=== PATIENT | male | born 1955 | race Caucasian/White ===

== ENCOUNTER → 2016-06-08 | Outpatient (CLI) | payer BC, OTHER | LOC: M SLEEP 19:45 | PROVIDERS: ATTEND Nurse Practitioner Adult Health | DX: G47.30 Sleep apnea, unspecified (principal) ==

== ENCOUNTER → 2016-07-15 | Outpatient (CLI) | payer OTHER ==
--- NOTE | 2016-07-17 08:56 | SLEEPCENT ---
DATE OF PROCEDURE: 07/15/2016 ORDERED BY: ROMIE Montes De Oca Nocturnal polysomnography was performed for the titration of pressure therapy in this patient with obstructive sleep apnea syndrome, apnea hypopnea index of 25. For testing, the patient was fit a [employer]Med Quattro full face mask of medium size. 4 cm of water pressure were applied to the circuit and the lights were extinguished. 6 hours and 41 minutes of data were reviewed. There were 362 minutes of sleep identified. Sleep latency was mildly prolonged at 17 minutes. Rapid eye movement (REM) latency was more so prolonged at 280 minutes. Sleep architecture improved late in the study with optimal pressure therapy. Overall sleep efficiency was 91%. The patient's electrocardiogram (EKG) showed a sinus rhythm with an average heart rate of 58 beats per minute. Electroencephalogram (EEG) showed normal waveforms for awake and sleep. Respiratory events were found best palliated with CPAP at pressure of +13. CPAP tolerance was good. Some limb activity was appreciated. However, arousals from limb events occurred only five times per hour. IMPRESSION: Obstructive sleep apnea syndrome (G47.33). RECOMMENDATION: Nightly use of pressure therapy 13 cm of water.
== END ==
LOC: M SLEEP 07-15 20:00
PROVIDERS: ATTEND Nurse Practitioner Adult Health
DX: G47.33 Obstructive sleep apnea (adult) (pediatric) (principal)

== ENCOUNTER → 2016-09-23 | Outpatient (REF) | payer OTHER | LOC: M SFHCCLAY 09:35 | PROVIDERS: ATTEND Family Medicine | DX: E11.9 Type 2 diabetes mellitus without complications (principal); E78.2 Mixed hyperlipidemia; Z53.9 Procedure and treatment not carried out, unspecified reason ==

== ENCOUNTER → 2022-05-17 | Outpatient (REF) | payer BC ==
[2022-05-17 12:59] LABS: ALBUMIN 3.8 G/DL (3.2-5.2); ALKALINE PHOSPHATASE 101 U/L (46-116); ALT/SGPT 48 U/L (7.0-40); AST/SGOT 21 U/L (<34); BILIRUBIN,TOTAL 0.6 MG/DL (0.3-1.2); BLOOD UREA NITROGEN 17 MG/DL (9-23); CALCIUM LEVEL 9.4 MG/DL (8.3-10.6); CARBON DIOXIDE LEVEL 27 MMOL/L (20-31); CHLORIDE LEVEL 101 MMOL/L (98-107); CHOLESTEROL LEVEL 181 MG/DL (<200); CHOLESTEROL RISK RATIO 5.09 (<5); GLOMERULAR FILTRATION RATE > 60.0 (>49); GLUCOSE, FASTING 327 MG/DL (74-106); HDL CHOLESTEROL 35.5 MG/DL (>40); NON-HDL-C 146 MG/DL; POTASSIUM SERUM 4.7 MMOL/L (3.5-5.1); SODIUM LEVEL 134 MMOL/L (136-145); TOTAL PROTEIN 6.8 G/DL (5.7-8.2); TRIGLYCERIDES LEVEL 601 MG/DL (<150)
[2022-05-17 13:36] LABS: HEMOGLOBIN A1c 12.7 % (4.0-6.0)
== END ==
LOC: M SFHCCLAY 07:36
PROVIDERS: ATTEND Family Medicine
DX: E11.9 Type 2 diabetes mellitus without complications (principal); E78.2 Mixed hyperlipidemia

== ENCOUNTER → 2022-11-15 | Outpatient (REF) | payer BC ==
[2022-11-15 12:25] LABS: ALBUMIN 3.8 G/DL (3.2-5.2); ALKALINE PHOSPHATASE 72 U/L (46-116); ALT/SGPT 11 U/L (7.0-40); AST/SGOT 13 U/L (<34); BILIRUBIN,TOTAL 0.6 MG/DL (0.3-1.2); BLOOD UREA NITROGEN 18 MG/DL (9-23); CALCIUM LEVEL 9.3 MG/DL (8.3-10.6); CARBON DIOXIDE LEVEL 27 MMOL/L (20-31); CHLORIDE LEVEL 100 MMOL/L (98-107); CREATININE FOR GFR 0.62 MG/DL (0.70-1.30); GLOMERULAR FILTRATION RATE > 60.0 (>49); GLUCOSE, FASTING 329 MG/DL (74-106); POTASSIUM SERUM 4.5 MMOL/L (3.5-5.1); SODIUM LEVEL 134 MMOL/L (136-145); TOTAL PROTEIN 7.1 G/DL (5.7-8.2)
[2022-11-15 12:28] LABS: HEMOGLOBIN A1c 11.7 % (4.0-6.0)
== END ==
LOC: M SFHCCLAY 07:49
PROVIDERS: ATTEND Family Medicine
DX: E11.9 Type 2 diabetes mellitus without complications (principal)

== ENCOUNTER → 2023-05-06 | Outpatient (REF) | payer BC ==
[2023-05-06 14:43] LABS: HEMATOCRIT 52.1 % (42.0-52.0); HEMOGLOBIN 17.9 g/dl (13.5-17.5); MEAN CORPUSCULAR HEMOGLOBIN 30.4 pg (27.0-33.0); MEAN CORPUSCULAR HGB CONC 34.4 g/dl (32.0-36.5); MEAN CORPUSCULAR VOLUME 88.6 fl (80.0-96.0); PLATELET COUNT, AUTOMATED 223 10^3/uL (150-450); RED BLOOD COUNT 5.88 10^6/uL (4.30-6.10); WHITE BLOOD COUNT 8.2 10^3/uL (4.0-10.0)
[2023-05-06 15:10] LABS: ALBUMIN 4.3 G/DL (3.2-5.2); ALKALINE PHOSPHATASE 69 U/L (46-116); ALT/SGPT 34 U/L (7.0-40); AST/SGOT 11 U/L (<34); BILIRUBIN,TOTAL 0.8 MG/DL (0.3-1.2); BLOOD UREA NITROGEN 17 MG/DL (9-23); CALCIUM LEVEL 10.3 MG/DL (8.3-10.6); CARBON DIOXIDE LEVEL 24 MMOL/L (20-31); CHLORIDE LEVEL 103 MMOL/L (98-107); CHOLESTEROL LEVEL 251 MG/DL (<200); CHOLESTEROL RISK RATIO 7.49 (<5); CREATININE FOR GFR 0.57 MG/DL (0.70-1.30); GLOMERULAR FILTRATION RATE > 60.0 (>49); GLUCOSE, FASTING 259 MG/DL (74-106); HDL CHOLESTEROL 33.5 MG/DL (>40); NON-HDL-C 217.5 MG/DL; POTASSIUM SERUM 4.7 MMOL/L (3.5-5.1); SODIUM LEVEL 137 MMOL/L (136-145); TOTAL PROTEIN 7.3 G/DL (5.7-8.2); TRIGLYCERIDES LEVEL 978 MG/DL (<150)
[2023-05-06 15:11] LABS: HEMOGLOBIN A1c 12.2 % (4.0-6.0)
== END ==
LOC: M SFHCCLAY 09:29
PROVIDERS: ATTEND Family Medicine
DX: E11.9 Type 2 diabetes mellitus without complications (principal); I10 Essential (primary) hypertension; E78.2 Mixed hyperlipidemia

== ENCOUNTER → 2023-12-19 | Outpatient (REF) | payer MEDICARE ==
[2023-12-19 12:18] LABS: ALKALINE PHOSPHATASE 72 U/L (46-116); ALT/SGPT 36 U/L (7.0-40); AST/SGOT 15 U/L (<34); BLOOD UREA NITROGEN 18 MG/DL (9-23); CALCIUM LEVEL 9.4 MG/DL (8.3-10.6); CARBON DIOXIDE LEVEL 26 MMOL/L (20-31); CHLORIDE LEVEL 102 MMOL/L (98-107); CREATININE FOR GFR 0.54 MG/DL (0.70-1.30); GLOMERULAR FILTRATION RATE > 60.0 (>49); GLUCOSE, FASTING 274 MG/DL (74-106); POTASSIUM SERUM 4.5 MMOL/L (3.5-5.1); SODIUM LEVEL 134 MMOL/L (136-145)
[2023-12-19 12:48] LABS: HEMOGLOBIN A1c 13.4 % (4.0-6.0)
== END ==
LOC: M SFHCCLAY 07:37
PROVIDERS: ATTEND Family Medicine
DX: E11.9 Type 2 diabetes mellitus without complications (principal)

== ENCOUNTER → 2024-06-24 | Outpatient (REF) | payer MEDICARE ==
[2024-06-24 11:32] LABS: BASO % 0.6 % (0.0-1.0); EOS # 0.1 10^3/uL (0.0-0.5); HEMATOCRIT 52.5 % (42.0-52.0); LYMPH # 2.3 10^3/uL (1.5-5.0); LYMPH % 32.6 % (24.0-44.0); MEAN CORPUSCULAR HEMOGLOBIN 29.9 pg (27.0-33.0); MEAN CORPUSCULAR HGB CONC 34.3 g/dl (32.0-36.5); MEAN CORPUSCULAR VOLUME 87.2 fl (80.0-96.0); MONO # 0.7 10^3/uL (0.0-0.8); MONO % 9.4 % (2.0-8.0); NEUTROPHILS # 3.9 10^3/uL (1.5-8.5); PLATELET COUNT, AUTOMATED 214 10^3/uL (150-450); RED BLOOD COUNT 6.02 10^6/uL (4.30-6.10)
[2024-06-24 11:44] LABS: HEMOGLOBIN A1c 12.2 % (4.0-6.0)
[2024-06-24 12:01] LABS: ALBUMIN 3.9 G/DL (3.2-5.2); ALKALINE PHOSPHATASE 63 U/L (40-129); ALT/SGPT 33 U/L (7.0-40); AST/SGOT 11 U/L (<34); BILIRUBIN,TOTAL 1.2 MG/DL (0.3-1.2); BLOOD UREA NITROGEN 17 MG/DL (9-23); CALCIUM LEVEL 9.6 MG/DL (8.3-10.6); CARBON DIOXIDE LEVEL 26 MMOL/L (20-31); CHLORIDE LEVEL 103 MMOL/L (98-107); CHOLESTEROL LEVEL 172 MG/DL (<200); CHOLESTEROL RISK RATIO 5.71 (<5); CREATININE FOR GFR 0.57 MG/DL (0.70-1.30); GLOMERULAR FILTRATION RATE > 60.0 (>49); GLUCOSE, FASTING 334 MG/DL (74-106); HDL CHOLESTEROL 30.1 MG/DL (>40); LDL CHOLESTEROL 97.1 MG/DL (<100); NON-HDL-C 141.9 MG/DL; POTASSIUM SERUM 4.8 MMOL/L (3.5-5.1); SODIUM LEVEL 139 MMOL/L (136-145); TOTAL PROTEIN 7.4 G/DL (5.7-8.2); TRIGLYCERIDES LEVEL 224 MG/DL (<150)
== END ==
LOC: M SFHCCLAY 08:34
PROVIDERS: ATTEND Family Medicine
DX: E11.9 Type 2 diabetes mellitus without complications (principal); R10.31 Right lower quadrant pain; I10 Essential (primary) hypertension; E78.2 Mixed hyperlipidemia

== ENCOUNTER → 2025-01-11 | Outpatient (REF) | payer MEDICARE ==
[2025-01-11 13:23] LABS: ESTIMATED AVERAGE GLUCOSE 295.0 MG/DL (60-110)
[2025-01-11 13:38] LABS: ALT/SGPT 37 U/L (7.0-40); AST/SGOT 18 U/L (<34); CALCIUM LEVEL 9.6 MG/DL (8.3-10.6); CARBON DIOXIDE LEVEL 28 MMOL/L (20-31); CHLORIDE LEVEL 101 MMOL/L (98-107); CREATININE FOR GFR 0.55 MG/DL (0.70-1.30); GLOMERULAR FILTRATION RATE > 90.0 (>49); POTASSIUM SERUM 5.0 MMOL/L (3.5-5.1); SODIUM LEVEL 138 MMOL/L (136-145)
== END ==
LOC: M SFHCCLAY 07:59
PROVIDERS: ATTEND Family Medicine
DX: E11.9 Type 2 diabetes mellitus without complications (principal)